=== PATIENT | female | born 1990 | race Caucasian/White ===

== ENCOUNTER 2016-09-22 06:04 | Emergency (ER) | payer SELFPAY ==
--- NOTE | 2016-09-22 06:30 | ERPHSYRPT ---
- History of Present Illness Time Seen by Provider: 09/22/16 06:18 Source: patient Exam Limitations: no limitations Patient Subjective Stated Complaint: Pt sts cp that woke her up around 0530. Rt side of chest and under right breast. Rates pain 7/10. Unable to describe. Worse with deep inspiration, cough. Denies shortness of breath. Pt sts no fever. Denies recent illness. Denies N/V. Triage Nursing Assessment: Pt alert, oriented, answers all questions appropriately. Skin p/w/d, resps non-labored. Pt SPO2 99% room air. Ambulatory to tx room, steady gait noted. Physician History: This is a 26-year-old white female previously healthy arrives with complaint of pain in her right lateral chest worse with breathing described as sharp symptoms which woke the patient up this morning. Patient to is not short of breath she has no vomiting no nausea no fevers she is not coughing. Past medical history is negative past surgical history is negative. Patient states her last period was 30 days ago. Patient denies any chance of Timing/Duration: today (one hour ago) Severity: moderate Modifying Factors: Improves With: other (deep breathing) Associated Symptoms: chest pain (pain right lateral chest worse with deep breathing), No nausea, No vomiting, No abdominal pain, No shortness of breath, No heartburn, No diaphoresis, No cough, No chills, No fever, No headaches, No loss of appetite (this) Allergies/Adverse Reactions: sulfamethoxazole [From Sulfamethoprim] Allergy (Intermediate, Verified 09/22/16 06:05) rash trimethoprim [From Sulfamethoprim] Allergy (Intermediate, Verified 09/22/16 06: 05) rash amoxicillin [From Augmentin] Allergy (Verified 09/22/16 06:05) clavulanic acid [From Augmentin] Allergy (Verified 09/22/16 06:05) Home Medications: No Reportable Medications [No Reported Medications] 11/25/14 [History] Hx Tetanus, Diphtheria Vaccination/Date Given: Yes Hx Influenza Vaccination/Date Given: No Hx Pneumococcal Vaccination/Date Given: No - Review of Systems Constitutional: No Fever, No Chills Eyes: No Symptoms Ears, Nose, & Throat: No Symptoms Respiratory: No Cough, No Dyspnea Cardiac: Chest Pain (pain right lateral chest worse with deep breathing) Abdominal/Gastrointestinal: No Abdominal Pain, No Nausea, No Vomiting, No Diarrhea Genitourinary Symptoms: No Dysuria Musculoskeletal: No Back Pain, No Neck Pain Skin: No Rash Neurological: No Dizziness, No Focal Weakness, No Sensory Changes Psychological: No Symptoms Endocrine: No Symptoms All Other Systems: Reviewed and Negative - Past Medical History Pertinent Past Medical History: No - Past Surgical History Past Surgical History: Yes Other Surgical History: tubes in ears - Social History Smoking Status: Never smoker Exposure to second hand smoke: No Drug Use: none Patient Lives Alone: No - Female History Hx Last Menstrual Period: 1 month ago, due to start; denies chance of - Nursing Vital Signs Nursing Vital Signs: Initial Vital Signs Pulse Rate 76 Respiratory Rate 20 Blood Pressure [] 113/65 Pain Intensity 7 - Physical Exam Eye Exam: PERRL/EOMI Ears, Nose, Throat Exam: normal ENT inspection, TMs normal, pharynx normal, moist mucous membranes Neck Exam: normal inspection (this is a girl mustn't withdraw), non-tender, supple, full range of motion Respiratory Exam: normal breath sounds, lungs clear, No chest tenderness, No respiratory distress Cardiovascular Exam: regular rate/rhythm, normal heart sounds, normal peripheral pulses Gastrointestinal/Abdomen Exam: soft, normal bowel sounds, No tenderness, No mass Back Exam: normal inspection, normal range of motion, No CVA tenderness, No vertebral tenderness Extremity Exam: normal inspection, normal range of motion, pelvis stable Neurologic Exam: alert, oriented x 3, cooperative, normal mood/affect, nml cerebellar function, nml station & gait, sensation nml, No motor deficits Skin Exam: normal color, warm, dry, No rash Lymphatic Exam: No adenopathy SpO2 Interpretation: normal (99%) SpO2: 99 Oxygen Delivery: Room Air - Course Nursing assessment & vital signs reviewed: Yes EKG Interpreted by Me: RATE (65 bpm), Sinus Rhythm, NORMAL AXIS, Other (EKG: Normal sinus rhythm, 65 bpm, no acute ST or T wave changes noted, essentially normal ekg) - Radiology Exams Chest X-ray Interpretation: Interpreted by me, Negative, No Pneumonia, No Pneumothorax Ordered Tests: Active Orders 24 hr Category Date Time Status CHEST 2 VIEWS (PA AND LAT) Stat Exams 09/22/16 06:24 Taken - Progress Progress: improved Progress Note: 09/22/16 07:03 26-year-old white female arrives with complaint of pain right chest sharp worse with breathing woke her up from sleep minimal shortness of breath associated with it. Patient's EKG is unremarkable or normal EKG no acute changes. Patient's chest x-ray no pneumothorax no pneumonias. Patient had been offered Toradol she does not want this she does not want any pain medications here in the emergency room she feels like she can go home and take Advil. Will go ahead and discharge patient - Departure Time of Disposition: 07:04 Departure Disposition: Home Clinical Impression: Non-cardiac chest pain Condition: Fair Critical Care Time: No Referrals: GIAN BRITT [Primary Care Provider] - Additional Instructions: Return home. Plenty of fluids. Advil 2 tablets orally every 6 hours with food as needed for pain. Follow-up with your family doctor Return for acute distress or for severe symptoms. your x-rays have been preliminarily read, they will be reread later today you will be notified if any abnormalities are noted
[2016-09-22 07:20] VITALS: BP 104/66; PULSE 78; O2SAT 97
--- NOTE | 2016-09-22 09:44 | XRAY ---
Indication: Chest pain. Comparison: None PA/lateral chest demonstrates normal heart, lungs, and bony thorax.
== END 2016-09-22 07:25 | disposition home or self-care (01) ==
LOC: ED 06:04
DX: R07.89 Other chest pain (principal)
CPT/HCPCS: 71020; 93005; 99283